=== PATIENT | male | born 1940 | race Caucasian/White ===

== ENCOUNTER 2016-11-01 08:31 | Emergency (ER) | payer OTHER ==
[~2016-11-01] VITALS: Ht 172.7 cm; Wt 99.8 kg
[~2016-11-01 08:31] MED LIST: ASPIR-LOX325 MG PO; ASPIRIN325 MG PO; ATENOLOL25 MG PO; COZAAR25 M1 PO; DAYPRO600 M1 PO; DOK COLACE100 MG PO; FOLIC ACID PO; GLUCOPHAGE1000 MG PO; HYDROCODONE BIT1 T20 PO; LEVAQUIN500 M2 PO; LISINOPRIL/HCTZ1 TA4 PO; LOVENOX30 MG/0.3 SC; MELOXICAM15 MG PO; METFORMIN1000 MG PO; NAPROSYN500 MG PO; NORVASC10 MG PO; OYSTER CALCIUM500 MG PO; PERCOCET 325 MG1 TA2 PO; POTASSIUM20 MEQ PO; PRAVACHOL20 MG PO; PRAVASTATIN SOD40 MG PO; PREDNISONE2.5 MG PO; PRILOSEC20 MG PO; PROZAC20 MG PO; ROBAXIN750 MG PO; SIMVASTATIN40 MG PO; TRAZODONE50 MG PO; VICO75300 PO; VITAMIN D31000 I2 PO; ZOLPIDEM10 M1 PO
[2016-11-01] MEDS ORDERED: Fioricet 325 MG1 TAB PO (12:29)
== END 2016-11-01 12:37 | disposition home or self-care (01) ==
LOC: ED 08:31
DX: M79.604 Pain in right leg (principal); F17.200 Nicotine dependence, unspecified, uncomplicated; Z95.0 Presence of cardiac pacemaker; Z90.49 Acquired absence of other specified parts of digestive tract; E11.9 Type 2 diabetes mellitus without complications; K21.9 Gastro-esophageal reflux disease without esophagitis; E78.5 Hyperlipidemia, unspecified; I10 Essential (primary) hypertension; Z91.013 Allergy to seafood; Z79.899 Other long term (current) drug therapy; Z96.651 Presence of right artificial knee joint

== ENCOUNTER → 2016-11-09 | Outpatient (CLI) | payer OTHER ==
[~2016-11-09] MED LIST changes: +Fioricet 325 MG1 TAB PO
== END | disposition home or self-care (01) ==
LOC: ORTHO 03:24
DX: M51.27 Other intervertebral disc displacement, lumbosacral region (principal); E11.9 Type 2 diabetes mellitus without complications; M85.88 Other specified disorders of bone density and structure, other site; Z96.651 Presence of right artificial knee joint

== ENCOUNTER 2017-04-04 08:21 | Emergency (ER) | payer OTHER ==
[~2017-04-04] VITALS: Ht 172.7 cm; Wt 103.4 kg
[2017-04-04 08:54] LABS: BASO # 0.1 10*3/uL (0.0-0.1); BASO % 0.5 % (0.0-1.0); EOS # 0.1 10*3/uL (0.0-0.4); EOS % 0.9 % (1.0-4.0); HEMATOCRIT 43.9 % (42.0-52.0); HEMOGLOBIN 14.5 g/dl (14.0-18.0); LYMPH # 2.9 10*3/uL (1.3-4.4); LYMPH % 31.6 % (27.0-41.0); MEAN CELL VOLUME 84.9 fl (80.0-94.0); MEAN PLATELET VOLUME 10.7 fl (9.6-12.3); MONO # 0.8 10*3/uL (0.1-1.0); MONO % 8.2 % (3.0-9.0); NEUT # 5.4 10*3/uL (2.3-7.9); NEUT % 58.5 % (47.0-73.0); PLATELET COUNT AUTOMATED 182 10*3/uL (130-400); RED BLOOD COUNT 5.17 10*6/uL (4.50-5.90); WHITE BLOOD COUNT 9.2 10*3/uL (4.8-10.8)
[2017-04-04 09:09] LABS: ALKALINE PHOSPHATASE 91 U/L (45-117); BUN 14 mg/dl (7-24); CHLORIDE 100 mmol/L (98-107); CREATININE 1.29 mg/dL (0.70-1.30); POTASSIUM 4.3 mmol/L (3.5-5.1); SGOT/AST 20 IU/L (3-35); SGPT/ALT 20 U/L (12-78); SODIUM 136 mmol/L (136-145); TOTAL PROTEIN 8.2 gm/dL (6.4-8.2)
[2017-04-04 09:42] LABS: BILIRUBIN 1+ (NEGATIVE); BLOOD NEGATIVE (NEGATIVE); CLARITY SL CLOUDY (CLEAR); COLOR YELLOW (YELLOW); GLUCOSE TRACE (NEGATIVE); KETONE TRACE (NEGATIVE); LEUKO ESTERASE NEGATIVE (NEGATIVE); NITRITE NEGATIVE (NEGATIVE); SPECIFIC GRAVITY >= 1.030 (1.005-1.030); UROBILINOGEN 0.2 E.U./dl (0.2-1.0)
[2017-04-04 09:56] LABS: HYALINE CAST TNTC
[2017-04-04 09:57] LABS: BACTERIA TRACE; MUCOUS 2+
[2017-04-04] MEDS ORDERED: MEDROL DOSEPAK4 MG PO (10:24)
== END 2017-04-04 10:30 | disposition home or self-care (01) ==
LOC: ED 08:21
PROVIDERS: Emergency Medicine
DX: M54.5 Low back pain (principal); M54.32 Sciatica, left side; F32.9 Major depressive disorder, single episode, unspecified; E11.9 Type 2 diabetes mellitus without complications; I10 Essential (primary) hypertension; E78.5 Hyperlipidemia, unspecified; K21.9 Gastro-esophageal reflux disease without esophagitis; Z90.49 Acquired absence of other specified parts of digestive tract; Z95.0 Presence of cardiac pacemaker; Z91.013 Allergy to seafood; Z79.899 Other long term (current) drug therapy; Z79.84 Long term (current) use of oral hypoglycemic drugs

== ENCOUNTER → 2017-04-23 | Outpatient (CLI) | payer OTHER ==
[~2017-04-23] MED LIST changes: +MEDROL DOSEPAK4 MG PO
== END ==
LOC: CT 09:43
DX: M54.5 Low back pain (principal); Z98.890 Other specified postprocedural states

== ENCOUNTER 2017-05-27 20:34 | Inpatient (IN) | payer OTHER ==
[~2017-05-27] VITALS: Ht 172.7 cm; Wt 98.5 kg
--- NOTE | ~2017-05-27 | PR ---
[place], [place] PROGRESS NOTE [id number] UN[facility] #: [id number] ROOM: 412 DOCTOR: MAYANK FULLER MD BIRTHDATE: [birth year] DOS: 05/30/2017 SUBJECTIVE: The patient says that his abdominal pains have improved. OBJECTIVE: VITAL SIGNS: Blood pressure 117/63, heart rate 85 beats per minute, breathing 20 times per minute, temperature 99 degrees Fahrenheit. GENERAL: Obesity. HEENT AND NECK: Exam within normal limits. CARDIOVASCULAR SYSTEM: Heart rate is regular in rate and rhythm. S1 and S2 normally audible. LUNGS: Clear to auscultation. ABDOMEN: Soft, nontender. No obvious organomegaly. Bowel sounds are present. EXTREMITIES: Without significant cyanosis or edema. IMPRESSION: 1. The patient with acute gallstone pancreatitis without necrosis or infection. White cell count still elevated at 23,000. The patient was being followed by Surgery, but her symptoms have improved. 2. The patient with cholelithiasis, requires cholecystectomy at a later time. 3. Type 2 diabetes mellitus. Blood sugars are being monitored and treated. 4. Benign essential hypertension. Blood pressures are staying normal with treatment. MAYANK FULLER MD CM:PNTRANS [phone] MAYANK FULLER MD 05/30/17 215 interface
--- NOTE | ~2017-05-27 | PR ---
[place], [place] PROGRESS NOTE [id number] UN[facility] #: [id number] ROOM: 412 DOCTOR: MAYANK FULLER MD BIRTHDATE: [birth year] DOS: 05/29/2017 SUBJECTIVE: The patient continues to feel better. Abdominal pains are improving. OBJECTIVE: GENERAL APPEARANCE: The patient is alert and oriented x 3, in no visible distress. VITAL SIGNS: Blood pressure 108/56, heart rate of 99 beats per minute, breathing normally, temperature ranging between 98.8 to 101 degrees Fahrenheit. HEENT AND NECK: Exam within normal limits. CARDIOVASCULAR SYSTEM: Heart rate is regular in rate and rhythm. S1 and S2 normally audible. LUNGS: Clear to auscultation. ABDOMEN: Soft, nontender. No obvious organomegaly. Bowel sounds are present. EXTREMITIES: Without significant cyanosis or edema. IMPRESSION: 1. The patient with cholelithiasis without biliary obstruction. 2. Acute gallstone pancreatitis without necrosis or infection. The patient is recovering, abdominal pains are improving. 3. Biliary colic secondary to calculus of the bile duct without cholangitis or cholecystitis without obstruction. 4. Severe leukocytosis. I will follow blood counts. The patient does not appear to be septic at this time. Fevers are resolving with treatment with metronidazole. 5. Benign essential hypertension with controlled blood pressures, which are being monitored. The patient is on labetalol. 6. Diabetes mellitus type 2. Blood sugars are being monitored and treated. MAYANK FULLER MD CM:PNTRANS [phone] MAYANK FULLER MD 05/29/17 2324 interface
--- NOTE | ~2017-05-27 | WRIGHTHP ---
[place], [place] PATIENT HISTORY AND PHYSICAL EXAM NAME: SHENA MENDOZA [facility] #: [id number] UNIT #: [id number] ROOM: 412 DOCTOR: MICHELLE HEAD MD BIRTHDATE: [birth year] DOS: 05/28/2017 A 77-year-old patient who comes in with complaints of acute abdominal pain. HISTORY OF PRESENT ILLNESS: The patient says that he has had this pain for about a week now and he was told to go to the Emergency Room because the pain got worse. He has already been scheduled for some testing as an outpatient. He denies having any fever, chills, any cough, any sputum production, nausea, any emesis. PAST MEDICAL HISTORY: Significant for: 1. History of primary osteoarthritis, right knee replacement. 2. Type 2 diabetes mellitus. 3. Benign hypertension. 4. Gastroesophageal reflux disease. 5. Mixed hyperlipidemia. 6. Chronic kidney disease. MEDICATIONS: He is currently on are amlodipine 10 daily, aspirin 325 daily, atenolol 25 daily, Colace 100 b.i.d., 20 daily, folic acid 1 mg daily, lisinopril/hydrochlorothiazide 1 tablet daily, losartan 25 daily, Meloxicam 15 daily, metformin 500 daily, omeprazole 20 daily, Pravachol 20 daily, prednisone 2.5 daily, trazodone 50 at bedtime. SOCIAL HISTORY: Nonsmoker, does not use any alcohol. Lives at home. PHYSICAL EXAMINATION: GENERAL: The patient is awake and alert and oriented. VITAL SIGNS: Blood pressure is 98/50, pulse of 104, respirations 18, temperature 99.6. LUNGS: Clear. HEART: Regular. ABDOMEN: Obese, soft, nontender this morning. EXTREMITIES: Without any edema. LABORATORY DATA: CT of the abdomen and pelvis shows an enlarged prostate, diverticulosis, cholelithiasis with moderately distended gallbladder. ASSESSMENT AND PLAN: 1. Biliary colic with possibility of mild cholecystitis. The patient is placed on IV fluids, IV antibiotics, n.p.o. 2. Possibility of acute pancreatitis from migration of a biliary stone. We will continue n.p.o. Amylase and lipase will be ordered tomorrow. A surgical consultation obtained. May need an MRCP, but we will check LFTs in the morning. So far, the LFTs are normal. 3. Type 2 diabetes mellitus. Blood sugars not very well controlled. Since he is n.p.o., metformin has been held and the patient will be started on an insulin sliding scale. [place], [place] PATIENT HISTORY AND PHYSICAL EXAM NAME: SHENA MENDOZA UNIT #: [id number] ROOM: [facility] DOCTOR: MICHELLE HEAD MD BIRTHDATE: [birth year] MICHELLE HEAD MD CM:HISPHYS:PATIENT HISTORY AND PHYSICAL EXAMINATION 8 MICHELLE HEAD MD 05/28/17 09 interface
--- NOTE | ~2017-05-27 | PR ---
[place], [place] PROGRESS NOTE [id number] UN[facility] #: [id number] ROOM: 412 DOCTOR: MICHELLE HEAD MD BIRTHDATE: [birth year] DOS: SUBJECTIVE: The patient is doing fine without any complaint. Denies any chest pains, palpitations, abdominal pain. OBJECTIVE: VITAL SIGNS: Blood pressure is 120/50, pulse of 70, respirations 18, temperature 98.7. LUNGS: Diminished breath sounds, clear. HEART: Regular. ABDOMEN: Obese, soft, nontender. EXTREMITIES: Without any edema. ASSESSMENT AND PLAN: 1. Hypokalemia. Supplementation will be ordered. 2. Acute cholecystitis with gallstone pancreatitis. White cell count is still elevated. Lactic acid has normalized. The patient is awaiting a HIDA scan this morning and if it looks good, hope is to discharge him to home. His LFTs are normal. He will need to have gallbladder removed as an outpatient. I will let Dr. Elmore decide on when he would like to have that done. MICHELLE HEAD MD CM:PNTRANS [phone] MICHELLE HEAD MD 05/31/17 0953 interface
--- NOTE | ~2017-05-27 | PR ---
[place], [place] PROGRESS NOTE NAME: SHENA MENDOZA [facility] #: [id number] UNIT #: [id number] ROOM: 412 DOCTOR: JOHAN TERRELL MD BIRTHDATE: [birth year] DOS: 05/31/2017 CARDIOLOGY PROGRESS NOTE SUBJECTIVE: The patient was seen at his bedside today 05/31/2017 for followup of his sick sinus syndrome and newly documented atrial fibrillation. He was admitted to the hospital on this occasion on 05/27/2017 with abdominal pain and was found to have gallstone pancreatitis. During his hospitalization, he was found to be in atrial fibrillation with a rapid ventricular response. Medications were utilized to slow his heart rate. His GI process was stabilized. There is a chance that he may be discharged to home. The patient gives a history of pacemaker placement by Dr. Bill Ying in [place]. He has been followed routinely by Dr. Ying for his pacemaker since then. I do not have detailed records, but as best I can tell he was not in atrial fibrillation, although the pacemaker interrogations that are available to us do indicate that he has had atrial high rates. The patient's CHADS-VASc score is 4 indicating a high risk for stroke without anticoagulation. An echocardiogram is pending as of the time of this dictation. PHYSICAL EXAMINATION: GENERAL: He is an elderly white male who is awake, alert and oriented. VITAL SIGNS: Pulse is 70 and irregularly irregular, blood pressure is 120/50. He is afebrile. NECK: Supple. He has no jugular distention. Carotids are full. I heard no bruits. He had no neck or supraclavicular masses. LUNGS: Respirations are unlabored. His chest is clear to auscultation and percussion. He has no presacral edema or chest wall tenderness. HEART: Has an irregularly irregular rhythm without murmurs or gallops. The PMI is not displaced. He has no precordial heave, lift or thrill. ABDOMEN: Soft and normally active. EXTREMITIES: Showed no edema. IMPRESSION: 1. Gallstone pancreatitis -- improved. 2. History of sick sinus syndrome. 3. 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 4. Newly documented atrial fibrillation, which was seen on the current hospitalization. PLAN: The patient is at high risk for stroke without anticoagulation. I therefore suggested to be placed on a direct oral anticoagulant such as rivaroxaban. If surgery is needed in the near future, it can be stopped transiently to allow surgery to work him safely and then resumed. The patient tells me that he is following up with Dr. Bill Ying. I will review his echocardiogram. Assuming no surprises he could be discharged from our point of view on anticoagulant therapy to follow up with Dr. Ying in the near future. [place], [place] PROGRESS NOTE NAME: SHENA MENDOZA UNIT #: [id number] ROOM: 412 DOCTOR: XANDER ULRICH,JOHAN BIRTHDATE: [address] Walker and Dr. Reilly for asking our advice regarding the patient's care. JOHAN TERRELL MD CM:PNTRANS [phone] JOHAN TERRELL MD 05/31/17 1733 interface
[2017-05-27 20:34] VITALS: BP 137/93
[2017-05-27 21:10] VITALS: BP 100/67
[2017-05-27 21:32] LABS: BASO # 0.1 10*3/uL (0.0-0.1); BASO % 0.4 % (0.0-1.0); EOS # 0.1 10*3/uL (0.0-0.4); EOS % 0.8 % (1.0-4.0); HEMATOCRIT 43.7 % (42.0-52.0); HEMOGLOBIN 14.7 g/dl (14.0-18.0); LYMPH # 2.4 10*3/uL (1.3-4.4); LYMPH % 19.7 % (27.0-41.0); MEAN CELL VOLUME 84.2 fl (80.0-94.0); MEAN CORPUSCULAR HGB 28.3 pg (27.0-31.0); MEAN CORPUSCULAR HGB CONC 33.6 g/dl (33.0-37.0); MEAN PLATELET VOLUME 10.1 fl (9.6-12.3); MONO # 1.2 10*3/uL (0.1-1.0); MONO % 9.4 % (3.0-9.0); NEUT # 8.5 10*3/uL (2.3-7.9); NEUT % 68.8 % (47.0-73.0); PLATELET COUNT AUTOMATED 134 10*3/uL (130-400); RED BLOOD COUNT 5.19 10*6/uL (4.50-5.90); RED CELL DISTRI WIDTH 12.8 % (0-14.5); WHITE BLOOD COUNT 12.3 10*3/uL (4.8-10.8)
[2017-05-27 21:48] LABS: ALBUMIN 3.8 gm/dl (3.1-4.5); ALKALINE PHOSPHATASE 99 U/L (45-117); BUN 19 mg/dl (7-24); CHLORIDE 98 mmol/L (98-107); CREATININE 1.32 mg/dL (0.70-1.30); POTASSIUM 4.3 mmol/L (3.5-5.1); SGOT/AST 22 IU/L (3-35); SGPT/ALT 25 U/L (12-78); SODIUM 135 mmol/L (136-145); TOTAL PROTEIN 7.4 gm/dL (6.4-8.2)
[2017-05-27 21:49] LABS: TROPONIN I < 0.015 ng/ml (<0.045)
[2017-05-27 22:41] VITALS: BP 148/57
[2017-05-27 23:26] VITALS: BP 137/52
[2017-05-28 00:52] VITALS: BP 104/38
[2017-05-28 01:56] VITALS: BP 133/59
[2017-05-28 08:00] VITALS: BP 98/50
[2017-05-28] MEDS ORDERED: ZESTORETIC 20-1 EACH PO (09:54)
[2017-05-28] MEDS ORDERED: PRILOSEC20 M1 PO (09:57)
[2017-05-28 12:00] VITALS: BP 106/51
[2017-05-28 16:00] VITALS: BP 106/52
[2017-05-28 20:00] VITALS: BP 91/55
[2017-05-29] VITALS (10 sets, daily range): BP systolic 100–123; BP diastolic 45–82
[2017-05-29 05:58] LABS: HEMATOCRIT 41.1 % (42.0-52.0); HEMOGLOBIN 13.9 g/dl (14.0-18.0); MEAN CELL VOLUME 85.1 fl (80.0-94.0); MEAN CORPUSCULAR HGB 28.8 pg (27.0-31.0); MEAN CORPUSCULAR HGB CONC 33.8 g/dl (33.0-37.0); MEAN PLATELET VOLUME 11.1 fl (9.6-12.3); PLATELET COUNT AUTOMATED 100 10*3/uL (130-400); RED BLOOD COUNT 4.83 10*6/uL (4.50-5.90); RED CELL DISTRI WIDTH 13.4 % (0-14.5); WHITE BLOOD COUNT 27.3 10*3/uL (4.8-10.8)
[2017-05-29 06:17] LABS: ALBUMIN 2.8 gm/dl (3.1-4.5); CREATININE 1.45 mg/dL (0.70-1.30); POTASSIUM 3.9 mmol/L (3.5-5.1)
[2017-05-29 06:19] LABS: TOTAL PROTEIN 6.3 gm/dL (6.4-8.2)
[2017-05-29 07:00] LABS: PLATELET SUFFICIENCY LOW (NORMAL); TOTAL CELLS COUNTED 100 #CELLS
[2017-05-29 15:30] LABS: ACT PARTIAL THROMBO TIME 31.3 SECONDS (20.8-31.5); INTERNATIONAL NORM RATIO 1.2 (2.0-3.5)
[2017-05-30] VITALS: BP 121/54
[2017-05-30 06:17] LABS: HEMOGLOBIN 12.8 g/dl (14.0-18.0); MEAN CELL VOLUME 85.6 fl (80.0-94.0); MEAN CORPUSCULAR HGB 28.8 pg (27.0-31.0); MEAN CORPUSCULAR HGB CONC 33.7 g/dl (33.0-37.0); MEAN PLATELET VOLUME 11.6 fl (9.6-12.3); PLATELET COUNT AUTOMATED 92 10*3/uL (130-400); RED BLOOD COUNT 4.44 10*6/uL (4.50-5.90); RED CELL DISTRI WIDTH 13.3 % (0-14.5); WHITE BLOOD COUNT 23.2 10*3/uL (4.8-10.8)
[2017-05-30 06:24] LABS: BUN 26 mg/dl (7-24); CHLORIDE 105 mmol/L (98-107); CREATININE 1.11 mg/dL (0.70-1.30); POTASSIUM 3.8 mmol/L (3.5-5.1); SODIUM 138 mmol/L (136-145)
[2017-05-30 07:06] LABS: PLATELET SUFFICIENCY LOW (NORMAL); TOTAL CELLS COUNTED 100 #CELLS
[2017-05-30 08:33] VITALS: BP 117/63
[2017-05-30 12:15] VITALS: BP 92/58
[2017-05-30 16:00] VITALS: BP 116/57
[2017-05-30 20:00] VITALS: BP 116/72
[2017-05-31] VITALS: BP 118/64
[2017-05-31 06:11] LABS: BASO % 0.2 % (0.0-1.0); EOS % 0.1 % (1.0-4.0); HEMATOCRIT 35.1 % (42.0-52.0); HEMOGLOBIN 12.1 g/dl (14.0-18.0); LYMPH # 1.1 10*3/uL (1.3-4.4); LYMPH % 7.4 % (27.0-41.0); MEAN CELL VOLUME 84.6 fl (80.0-94.0); MEAN CORPUSCULAR HGB 29.2 pg (27.0-31.0); MEAN CORPUSCULAR HGB CONC 34.5 g/dl (33.0-37.0); MEAN PLATELET VOLUME 11.1 fl (9.6-12.3); MONO # 0.7 10*3/uL (0.1-1.0); MONO % 4.9 % (3.0-9.0); NEUT # 12.7 10*3/uL (2.3-7.9); NEUT % 86.8 % (47.0-73.0); PLATELET COUNT AUTOMATED 100 10*3/uL (130-400); RED BLOOD COUNT 4.15 10*6/uL (4.50-5.90); RED CELL DISTRI WIDTH 13.3 % (0-14.5); WHITE BLOOD COUNT 14.7 10*3/uL (4.8-10.8)
[2017-05-31 06:28] LABS: ALKALINE PHOSPHATASE 63 U/L (45-117); CHLORIDE 108 mmol/L (98-107); CREATININE 0.88 mg/dL (0.70-1.30); LIPASE 187 U/L (73-393); POTASSIUM 3.4 mmol/L (3.5-5.1); SGOT/AST 17 IU/L (3-35); SGPT/ALT 14 U/L (12-78); SODIUM 140 mmol/L (136-145); TOTAL PROTEIN 5.7 gm/dL (6.4-8.2)
[2017-05-31 06:31] LABS: BUN 16 mg/dl (7-24)
[2017-05-31 08:00] VITALS: BP 120/50
[2017-05-31] MEDS ORDERED: FLAGYL500 MG PO (08:50)
== END 2017-05-31 11:34 | disposition home or self-care (01) | DRG 444 ==
LOC: ED 20:34 → EDHOLD 05-28 00:12 → 4E 05-28 00:22
PROVIDERS: Emergency Medicine Emergency Medical Services; Internal Medicine; Internal Medicine Cardiovascular Disease
DX: K80.62 Calculus of gallbladder and bile duct with acute cholecystitis without obstruction (principal); K85.10 Biliary acute pancreatitis without necrosis or infection; R65.11 Systemic inflammatory response syndrome (SIRS) of non-infectious origin with acute organ dysfunction; E11.22 Type 2 diabetes mellitus with diabetic chronic kidney disease; I48.91 Unspecified atrial fibrillation; E78.00 Pure hypercholesterolemia, unspecified; K21.9 Gastro-esophageal reflux disease without esophagitis; F32.9 Major depressive disorder, single episode, unspecified; E78.5 Hyperlipidemia, unspecified; E66.9 Obesity, unspecified; R07.9 Chest pain, unspecified; Z96.652 Presence of left artificial knee joint; M54.32 Sciatica, left side; E78.2 Mixed hyperlipidemia; E87.6 Hypokalemia; N18.9 Chronic kidney disease, unspecified; I12.9 Hypertensive chronic kidney disease with stage 1 through stage 4 chronic kidney disease, or unspecified chronic kidney disease; Z79.01 Long term (current) use of anticoagulants; Z79.4 Long term (current) use of insulin; Z82.49 Family history of ischemic heart disease and other diseases of the circulatory system; Z83.3 Family history of diabetes mellitus; Z95.0 Presence of cardiac pacemaker; Z79.82 Long term (current) use of aspirin; Z91.013 Allergy to seafood; Z80.9 Family history of malignant neoplasm, unspecified; Z79.899 Other long term (current) drug therapy; Z68.32 Body mass index [BMI] 32.0-32.9, adult; Z86.79 Personal history of other diseases of the circulatory system

== ENCOUNTER 2017-08-23 01:54 | Inpatient (IN) | payer OTHER ==
[2017-08-19 10:00] LABS: BASO # 0.1 10*3/uL (0.0-0.1); BASO % 0.7 % (0.0-1.0); EOS # 0.1 10*3/uL (0.0-0.4); EOS % 0.9 % (1.0-4.0); HEMATOCRIT 43.4 % (42.0-52.0); HEMOGLOBIN 13.9 g/dl (14.0-18.0); LYMPH # 2.4 10*3/uL (1.3-4.4); LYMPH % 30.2 % (27.0-41.0); MEAN CELL VOLUME 87.9 fl (80.0-94.0); MEAN CORPUSCULAR HGB 28.1 pg (27.0-31.0); MEAN PLATELET VOLUME 10.4 fl (9.6-12.3); MONO # 0.7 10*3/uL (0.1-1.0); MONO % 8.8 % (3.0-9.0); NEUT # 4.8 10*3/uL (2.3-7.9); NEUT % 58.9 % (47.0-73.0); PLATELET COUNT AUTOMATED 183 10*3/uL (130-400); RED BLOOD COUNT 4.94 10*6/uL (4.50-5.90); RED CELL DISTRI WIDTH 13.2 % (0-14.5); WHITE BLOOD COUNT 8.1 10*3/uL (4.8-10.8)
[2017-08-19 10:25] LABS: INTERNATIONAL NORM RATIO 0.9 (2.0-3.5)
[2017-08-19 10:33] LABS: ALBUMIN 3.8 gm/dl (3.1-4.5); CREATININE 1.4 mg/dL (0.70-1.30); POTASSIUM 3.9 mmol/L (3.5-5.1); TOTAL PROTEIN 7.8 gm/dL (6.4-8.2)
[2017-08-19 10:37] LABS: BILIRUBIN, DIRECT 0.1 mg/dL (0.0-0.2)
[2017-08-23] VITALS (10 sets, daily range): BP systolic 120–154; BP diastolic 49–86
[~2017-08-23] VITALS: Ht 172.7 cm; Wt 91.9 kg
--- NOTE | ~2017-08-23 | DS ---
[place], [place] DISCHARGE SUMMARY NAME: SHENA MENDOZA UNIT #: [id number] ROOM: 515 DOCTOR: MAYANK FULLER MD BIRTHDATE: [birth year] DOS: 09/01/2017 ADDENDUM. See last discharge summary that I dictated on 08/31/2017 for discharge summary. DISCHARGE DIAGNOSES: 1. The patient with combined systolic, diastolic type congestive heart failure, now on Lasix. 2. Hypokalemia from taking Lasix. 3. Bilateral lower lobe pneumonia, treated with antibiotics. 4. Hypokalemia today, to be treated with extra potassium supplements and normalized before he is discharged to home. The patient's pulse ox will also be repeated today at room air with ambulation. Case was discussed with Dr. Carrasco today. PHYSICAL EXAMINAITON: GENERAL APPEARANCE: The patient is alert and oriented x 3, in no visible distress. Obesity. VITAL SIGNS: Blood pressure 144/91, heart rate of 76 beats per minute, breathing normally, afebrile. HEENT AND NECK: Exam within normal limits. CARDIOVASCULAR SYSTEM: Heart rate is regular in rate and rhythm. S1 and S2 normally audible. LUNGS: Clear to auscultation. ABDOMEN: Soft, nontender. No obvious organomegaly. Bowel sounds are present. EXTREMITIES: Without significant cyanosis or edema. MAYANK FULLER MD CM:DISCHARG [id number] MAYANK FULLER MD 09/01/17 1530 interface
--- NOTE | ~2017-08-23 | PR ---
[place], [place] PROGRESS NOTE [id number] UN[facility] #: [id number] ROOM: 515 DOCTOR: MAYANK FULLER MD BIRTHDATE: [birth year] DOS: 08/30/2017 SUBJECTIVE: The patient continues to feel better. OBJECTIVE: VITAL SIGNS: Blood pressure 100/50, heart rate ranging between 84 to 102 beats per minute, afebrile. GENERAL APPEARANCE: The patient is alert and oriented x 3, in no visible distress, except for obesity and generalized weakness. HEENT AND NECK: Exam within normal limits. CARDIOVASCULAR SYSTEM: Heart rate is regular in rate and rhythm. S1 and S2 normally audible. LUNGS: Clear to auscultation. ABDOMEN: Soft, nontender. No obvious organomegaly. Bowel sounds are present. EXTREMITIES: Without significant cyanosis or edema. IMPRESSION: 1. The patient with atrial fibrillation with rapid ventricular response, improved with Cardizem and beta álvaro. Dr. Rodriguez is following him. 2. Bilateral lower lobe atelectasis versus pneumonia, status post bronchoscopy. The patient has been cleared for discharge to home tomorrow. 3. The patient is status post open cholecystectomy. The situation was discussed with Dr. Elmore, his surgeon, who also has cleared him for discharge tomorrow. 4. Adult failure to thrive and generalized weakness. The patient is working with Physical Therapy and is ambulating better now. 5. Type 2 diabetes mellitus. Blood sugar is being monitored and treated and controlled. 6. Benign essential hypertension, with controlled blood pressures with treatment. 7. Recent nausea and vomiting, which was intractable have resolved. MAYANK FULLER MD CM:PNTRANS [phone] MAYANK FULLER MD 08/30/171947 interface
--- NOTE | ~2017-08-23 | PR ---
[place], [place] PROGRESS NOTE NAME: SHENA MENDOZA UNIT #: [id number] ROOM: 515 DOCTOR: DEBORA PHILLIP MD BIRTHDATE: [birth year] DOS: 08/30/2017 SUBJECTIVE: He has been still noted with significant cough. The patient has not been noted with any symptoms of chest pain or hemoptysis. The coughing has been noted moderate severe, nonproductive. He is scheduled for bronchoscopy to be done today. The abdominal pain of the patient after surgery has been improving progressively. No symptoms of edema or pain of the lower extremities. Denies symptoms of headache or diplopia. Remaining systems were reviewed. They were noted all negative. PHYSICAL EXAMINATION: VITAL SIGNS: NORMAL temperature, respiratory rate 20, heart rate of 106, blood pressure 118/63. The pulse oxygen saturation on 5 liters nasal cannula to 6 liters is 95% saturation. HEENT: Head was atraumatic. Eyes nonicterus. NECK: Supple. CARDIOVASCULAR: S1, S2 audible. LUNGS: The patient noted with moderate decreased breaths in the lungs bilaterally with severe decrease in the right lower lung. There were no crackles heard. ABDOMEN: Soft, status post surgery without any tenderness. CENTRAL NERVOUS SYSTEM: Nonfocal. LABORATORY DATA: BMP today shows glucose of 341, BUN and creatinine was normal, sodium 135. IMPRESSION: 1. The patient who has been currently noted with ongoing acute cough, related to mucus impaction, atelectasis, rule out pneumonia of the right lower lobe. 2. Bilateral pleural fluid, greater on the right than the left side. 3. Moderate obesity. 4. Hyperglycemia for this patient was noted as well. 5. Status post open cholecystectomy. PLAN OF MANAGEMENT: No changes in the plan of therapy at this time. Continue medical management of the pneumonia with current antibiotics. After bronchoscopy, any modification treatment if necessary will be done afterwards. Continue all other supportive therapy, plan of management care plan. Usual treatment. Other medical management changes will be done for the patient based on progression of the illness. [place], [place] PROGRESS NOTE NAME: SHENA MENDOZA UNIT #: [id number] ROOM: 515 DOCTOR: DEBORA PHILLIP MD BIRTHDATE: [birth year] DEBORA SAEZ MD CM:PNTRANS [phone] DEBORA MORGAN MD 08/31/17 0016 interface
--- NOTE | ~2017-08-23 | CON ---
[place], [place] REPORT OF CONSULTATION NAME: SHENA MENDOZA [facility] #: [id number] UNIT #: [id number] ROOM: 515 DOCTOR: MAYANK FULLER MD BIRTHDATE: [birth year] DOS: 08/24/2017 ATTENDING PHYSICIAN: Milton Elmore M.D. HISTORY OF PRESENT ILLNESS: The patient is a 77-year-old gentleman with a past medical history of: 1. Recent open cholecystectomy by Dr. Elmore for gallstone pancreatitis. 2. Obesity. 3. Benign essential hypertension. 4. Type 2 diabetes mellitus. 5. Osteoarthritis involving the right knee, status post replacement. 6. Mixed hyperlipidemia. 7. Gastroesophageal reflux disease and esophagitis. 8. 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 9. Chronic constipation. 10. Stage 3 chronic kidney disease. 11. Sleep apnea. 12. Mixed hyperlipidemia. The patient presented for elective cholecystectomy, but finally he had to be taken for an open cholecystectomy and Dr. Elmore decided to admit him for observing him after surgery. The patient says he is doing well except for pain at the surgical site. No complaints of shortness of breath, no chest pain, no GI or urinary symptoms. The patient just starting to eat. REVIEW OF SYSTEMS: LUNGS: No increasing shortness of breath. GASTROINTESTINAL: No nausea, vomiting, diarrhea or constipation. The patient just had a cholecystectomy. CARDIOVASCULAR: No chest pains or palpitations. FAMILY HISTORY: Noncontributory. MEDICATIONS: The patient takes losartan, atenolol, amlodipine, DuoNeb, trazodone, labetalol and Vicodin. ALLERGIES: No known drug allergies. PHYSICAL EXAMINATION: GENERAL: Alert, oriented x 3, in no visible distress. Obesity and the patient has surgical dressing at the open cholecystectomy site. HEENT AND NECK: Extraocular movements are intact. Sclerae are anicteric. Oral mucosa is moist and clean. No obvious facial weakness. Neck is supple without any lymphadenopathy. No thyromegaly. No JVD. No carotid arterial bruits. LUNGS: Clear to auscultation. No wheezing. No rhonchi. CARDIOVASCULAR SYSTEM: Heart rate is regular in rate and rhythm. S1 and S2 normally audible. No significant murmur or any other abnormal cardiac sounds. ABDOMEN: Soft, nontender. No obvious organomegaly. Bowel sounds are present. No obvious herniation. EXTREMITIES: Without significant cyanosis or edema. Warm to touch. [place], [place] REPORT OF CONSULTATION NAME: SHENA MENDOZA UNIT #: [id number] ROOM: [facility] DOCTOR: MAYANK FULLER MD BIRTHDATE: [birth year] CENTRAL NERVOUS SYSTEM: Alert and oriented x 3. Cranial nerves II-XII are intact. Speech is normal. The patient is able to move all extremities. Normal muscle strength. Deep tendon reflexes are equal on both sides. Plantars were downgoing. LABORATORY DATA: BUN and creatinine 14 and 1.4. Normal serum electrolytes, normal CBC and platelets. IMPRESSION: 1. The patient is status post open cholecystectomy complaining of pain at the surgical site. He is trying liquid diet at this time and not passing gas from below, being observed in the ICU. 2. Type 2 diabetes mellitus with diabetic nephropathy, stage 3, serum electrolytes will be monitored if stable. 3. Benign essential hypertension. Blood pressures are being monitored and treated and staying normal. 4. Chronic back pains and lumbar spondylosis controlled with Vicodin. 5. Centrilobular emphysema treated with bronchodilators. The patient is presently on DuoNeb. 6. Benign essential hypertension, treated and controlled. The patient remains on labetalol. 7. Chronic primary insomnia, treated with trazodone as needed at night. Dr. Elmore, thank you for asking me to see the patient. I will follow along with you. MAYANK FULLER MD CM:CONSTR:REPORT OF CONSULTATION 1248 08/24/172048 interface
--- NOTE | ~2017-08-23 | PR ---
[place], [place] PROGRESS NOTE NAME: SHENA MENDOZA [facility] #: [id number] UNIT #: [id number] ROOM: 515 DOCTOR: JOHAN TERRELL MD BIRTHDATE: [birth year] DOS: 08/28/2017 SUBJECTIVE: The patient was seen at his bedside today, 08/28/2017, for followup of his atrial fibrillation in rapid ventricular response. He is a 77-year-old man who was hospitalized with cholelithiasis and underwent an open cholecystectomy. He has a history of paroxysmal atrial fibrillation and since surgery has been in AFib with a rapid ventricular response. We have been adjusting his beta álvaro and diltiazem therapy and his rates are not yet well controlled. PHYSICAL EXAMINATION: VITAL SIGNS: Today his pulse is between 110 and 150, blood pressure is 129/64. He is afebrile. NECK: Supple. He has no jugular distention. Carotids are full. LUNGS: Respirations are unlabored. Chest is clear to auscultation and percussion. HEART: Has an irregularly irregular rhythm without murmur or gallop. ABDOMEN: Soft and normally active. EXTREMITIES: Showed no edema. LABORATORY DATA: Hemoglobin is 11.5, white count 14,400, platelet count 113,000. Sodium 135, potassium 3.5, BUN 10 and creatinine 0.88. PLAN: We will continue to adjust his beta álvaro and diltiazem to control his rate. It is my understanding that he is scheduled for bronchoscopy. Rivaroxaban can be withheld for 24 hours prior to the procedure in order to allow appropriate hemostasis. I thank the hospitalist physicians for asking our advice regarding his care. JOHAN TERRELL MD CM:PNTRANS [phone] JOHAN TERRELL MD 08/28/17 1557 interface
--- NOTE | ~2017-08-23 | PR ---
[place], [place] PROGRESS NOTE NAME: SHENA MENDOZA [facility] #: [id number] UNIT #: [id number] ROOM: 515 DOCTOR: SE MORGAN MD,DEBORA BIRTHDATE: [birth year] DOS: 08/28/2017 PULMONARY PROGRESS NOTE SUBJECTIVE: He has been still noted excessive chest congestion with coughing that has not been noted with any sputum expectoration with current medical management, use of bronchodilators, oxygen supplementation, Mucinex, incentive spirometry, and other interventions. He denies symptoms of chest pain. Denies symptoms of nausea, vomiting, or any diarrhea. Abdominal pain was noted from the past surgery, noted controlled pain from current abdominal pain. Denies symptoms of dysphagia. Remaining systems were reviewed with the patient and they were noted all negative. PHYSICAL EXAMINATION: VITAL SIGNS: Normal temperature, respiratory rate 18, heart rate of 110-116, blood pressure 129/64-94/61. Pulse oxygen saturation on 8 liters high flow nasal cannula is 96% saturation. HEENT: Examination shows head was atraumatic. Eyes nonicterus. NECK: Supple. CARDIOVASCULAR: S1, S2 audible. LUNGS: Noted decreased breath sounds in lower portion of the lungs. ABDOMEN: Soft, status post surgery. Bowel sounds present. EXTREMITIES: No edema. CENTRAL NERVOUS SYSTEM: Nonfocal. MUSCULOSKELETAL: Without any acute deformities. LABORATORY DATA: CBC today, WBC count 14.8, hemoglobin 12, hematocrit 36.1, and platelet count normal. BMP this morning, glucose 267 and potassium 3.1. Blood culture from 08/26/2017 taken was noted no bacterial growth. CT scan of the chest that was completed yesterday was personally reviewed shows evidence of bilateral pleural fluid, greater on the right than the left side with area of compression atelectasis and acute pneumonia would be considered as well. Mild elevation of the right hemidiaphragm as well. IMPRESSION: 1. The patient who has been currently noted with acute pneumonia with possible fluid overload as well with bilateral pleural fluid, larger on the right than the left side. 2. Chest congestion and coughing, inability to expectorate sputum. 3. Recent open cholecystectomy as well. PLAN OF TREATMENT: Continue with oxygen supplementation for the management of acute respiratory failure. Titrate to maintain pulse ox saturation 90% greater. The patient has been also suggested fibrobronchoscopy that will be done on Val[place] morning. Risks and benefits discussed. Thoracentesis might be necessary if the conservative treatment failed to resolve the current pleural fluids and fluid overload. [place], [place] PROGRESS NOTE NAME: SHENA MENDOZA UNIT #: [id number] ROOM: [facility] DOCTOR: SE MORGAN MD,DEBORA BIRTHDATE: [birth year] DEBORA SAEZ MD CM:PNTRANS [phone] DEBORA MORGAN MD 08/29/17 0259 interface
--- NOTE | ~2017-08-23 | PROC NOTE ---
[place], [place] PROCEDURE NOTE NAME: [id number] UNIT #: [id number] ROOM: [facility] DOCTOR: ES MORGAN MD,DEBORA BIRTHDATE: [birth year] DOS: 08/30/2017 BRONCHOSCOPY PREOPERATIVE DIAGNOSES: The patient with persistent severe cough, pulmonary infiltration, and pneumonia. POSTOPERATIVE DIAGNOSES: The patient with persistent severe cough, pulmonary infiltration, and pneumonia. PROCEDURE DESCRIPTION: Informed consent obtained from the patient. The patient was brought to the OR and placed in supine position. Conscious sedation was administered by the Anesthesia Department. After achieving proper sedation, airway introduced into the mouth. The bronchoscope advanced to the airway into laryngeal area. The epiglottis and vocal cords were seen. The bronchoscope advanced to the vocal cord and tracheal lumen. The tracheal lumen was seen, which was noted with moderate amount of secretion, which appeared to be a combination of mucus and purulent secretions suctioned out at the [place] level. The bronchoscope advanced further in bronchial subsegment sequentially. The patient noted with thick mucus in the superior segment of the right lower lobe endobronchial tree and the left lobe endobronchial tree. All the secretions suctioned out and cleared up with normal saline wash and sent for cultures. Procedure was well tolerated by the patient without any difficulty. Postoperative findings were discussed with the patient's spouse in detail. DEBORA SAEZ MD CM:PROCNOTE:PROCEDURE NOTE [id number] DEBORA MORGAN MD
--- NOTE | ~2017-08-23 | PR ---
[place], [place] PROGRESS NOTE NAME: SHENA MENDOZA [facility] #: [id number] UNIT #: [id number] ROOM: 515 DOCTOR: MAYANK FULLER MD BIRTHDATE: [birth year] DOS: 08/29/2017 SUBJECTIVE: The patient is feeling better. OBJECTIVE: VITAL SIGNS: Blood pressure 109/65, heart rate of 87 beats per minute, breathing 20 times per minute, temperature afebrile, pulse ox is staying 91 to 92%. GENERAL APPEARANCE: The patient is alert and oriented x 3, in no visible distress, except for generalized weakness and obesity. HEENT AND NECK: Exam within normal limits. CARDIOVASCULAR SYSTEM: Heart rate is regular in rate and rhythm. S1 and S2 normally audible. LUNGS: Clear to auscultation. ABDOMEN: Soft, nontender. No obvious organomegaly. Bowel sounds are present. EXTREMITIES: Without significant cyanosis or edema. IMPRESSION: 1. The patient with bilateral lower lobe atelectasis versus pneumonia, is being taken for bronchoscopy by Dr. Carrasco tomorrow. 2. Bilateral pleural effusions. The patient is being followed by Cardiology. 3. Acute episode of atrial fibrillation, followed by Dr. Rodriguez, treated with Cardizem and beta álvaro. The patient's heart rate is well controlled now and he is anticoagulated. 4. Recurrent nausea and vomiting, resolved. 5. The patient's recent open cholecystectomy. 6. Benign essential hypertension, treated and controlled. 7. Type 2 diabetes mellitus, blood sugar is being monitored and treated. MAYANK FULLER MD CM:PNTRANS [phone] MAYANK FULLER MD 08/29/171947 interface
--- NOTE | ~2017-08-23 | DS ---
[place], [place] DISCHARGE SUMMARY NAME: SHENA MENDOZA UNIT #: [id number] ROOM: 515 DOCTOR: JONNY ULRICHMAYANK Aldana BIRTHDATE: [birth year] DOS: 08/31/2017 DISCHARGE DIAGNOSES: 1. The patient with bilateral lower lung pneumonia and atelectasis, treated with antibiotics and the patient underwent bronchoscopy. 2. Chronic atrial fibrillation with rapid ventricular response. 3. Recent open cholecystectomy by Dr. Elomre. 4. Adult failure to thrive and generalized weakness. 5. Type 2 diabetes mellitus. 6. Benign essential hypertension. 7. Osteoarthritis involving the right knee, status post replacement. 8. Mixed hyperlipidemia. 9. Gastroesophageal reflux disease and esophagitis. 10. 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 11. Chronic constipation. 12. History of obesity and sleep apnea. The patient was admitted after elective cholecystectomy, which was converted into an open cholecystectomy by Dr. Elmore. Following this, patient was admitted to [facility]. The patient remained on antibiotics and was evaluated by Dr. Carrasco for acute over chronic respiratory failure and he was found to have bilateral lower lung pneumonia versus atelectasis. Dr. Carrasco took him for bronchoscopy yesterday and the patient has been continuously improving and now started to ambulate and has been cleared by Dr. Elmore for discharge to home. Bilateral pneumonia, followed and treated by forester aide, Dr. Carrasco. The patient also underwent bronchoscopy and he is breathing much better. Adult failure to thrive and generalized weakness and ambulatory dysfunction, improved with physical therapy. Type 2 diabetes mellitus. Blood sugars were monitored and treated and controlled. Chronic primary insomnia, treated with trazodone at night. Acute exacerbation of COPD, treated with bronchodilators, DuoNeb. Chronic atrial fibrillation with rapid ventricular response, which was treated with metoprolol and verapamil and heart rate is better controlled now. His Norvasc was stopped. Benign essential hypertension, with better controlled blood pressures. Obesity. The patient is working on diet. LABORATORY DATA: Sputum cultures grew normal deric. Blood cultures were negative. CT of the chest showed bilateral pleural effusions, moderate opacity in both lower lungs, pneumonia versus atelectasis. [place], [place] DISCHARGE SUMMARY NAME: SHENA MENDOZA UNIT #: [id number] ROOM: 515 DOCTOR: MAYANK FULLER MD BIRTHDATE: [birth year] DISCHARGE MANAGEMENT: Potassium chloride 10 mEq daily, furosemide 40 mg daily, diltiazem CD 360 mg daily, metoprolol 100 mg b.i.d., rivaroxaban 20 mg daily, Tylenol p.r.n., ondansetron 4 mg every 4 hours p.r.n. for nausea, vomiting, losartan 25 mg daily, DuoNeb q.i.d., trazodone 50 mg at bedtime. The patient is being determined for home oxygen requirement and will be discharged to home after clearance from his forester aide, Dr. Carrasco. One hour spent on patient's discharge process, communicating with nursing staff, patient and the consultants. ADDENDUM. See last discharge summary that I dictated on 08/31/2017 for discharge summary. DISCHARGE DIAGNOSES: 1. The patient with combined systolic, diastolic type congestive heart failure, now on Lasix. 2. Hypokalemia from taking Lasix. 3. Bilateral lower lobe pneumonia, treated with antibiotics. 4. Hypokalemia today, to be treated with extra potassium supplements and normalized before he is discharged to home. The patient's pulse ox will also be repeated today at room air with ambulation. Case was discussed with Dr. Carrasco today. PHYSICAL EXAMINAITON: GENERAL APPEARANCE: The patient is alert and oriented x 3, in no visible distress. Obesity. VITAL SIGNS: Blood pressure 144/91, heart rate of 76 beats per minute, breathing normally, afebrile. HEENT AND NECK: Exam within normal limits. CARDIOVASCULAR SYSTEM: Heart rate is regular in rate and rhythm. S1 and S2 normally audible. LUNGS: Clear to auscultation. ABDOMEN: Soft, nontender. No obvious organomegaly. Bowel sounds are present. EXTREMITIES: Without significant cyanosis or edema. [place], [place] DISCHARGE SUMMARY NAME: SHENA MENDOZA UNIT #: [id number] ROOM: 515 DOCTOR: MAYANK FULLER MD BIRTHDATE: [birth year] MAYANK FULLER MD CM:KRISHNA [id number] MAYANK FULLER MD 09/01/17 1530 interface
--- NOTE | ~2017-08-23 | PR ---
[place], [place] PROGRESS NOTE NAME: [id number] UNIT #: [id number] ROOM: 515 DOCTOR: JOHAN TERRELL MD BIRTHDATE: [birth year] DOS: 08/29/2017 CARDIOLOGY PROGRESS NOTE SUBJECTIVE: The patient was seen at his bedside today, 08/29/2017, for followup of his paroxysmal atrial fibrillation with rapid ventricular response. He is a 77-year-old man who was hospitalized with cholelithiasis and underwent an open cholecystectomy. He has been in atrial fibrillation since the surgery and up until yesterday the rate was fairly fast. We adjusted his beta álvaro and diltiazem therapies and his rate is now much better controlled. He states that he is feeling well, breathing easily and denies any chest pain. His appetite is improving. PHYSICAL EXAMINATION: VITAL SIGNS: Today his pulse is 87 and irregularly irregular, blood pressure is 109/65. He is afebrile. NECK: Supple. He has no jugular distention or hepatojugular reflux. Carotids are full. LUNGS: Respirations are unlabored. His chest is clear anteriorly and laterally. HEART: Has an irregularly irregular rhythm without murmurs or gallops. ABDOMEN: Soft. EXTREMITIES: Showed no edema of the ankles. IMPRESSION: 1. Paroxysmal atrial fibrillation. 2. Status post open cholecystectomy. 3. Postoperative atrial fibrillation with rapid ventricular response. PLAN: The patient currently is on metoprolol 100 mg b.i.d. and diltiazem 60 mg q.i.d. to control his heart rate. We will switch the diltiazem for the sustained release form and continue rivaroxaban for his stroke prophylaxis. We will continue to follow him intermittently with his other physicians. I thank the hospitalist physicians for asking our advice regarding his care. [place], [place] PROGRESS NOTE NAME: CULLEN MENDOZAY Tarik [facility] [id number]IT #: [id number] ROOM: [facility] DOCTOR: JOHAN TERRELL MD BIRTHDATE: [birth year] JOHAN TERRELL MD CM:PNTRANS [phone] JOHAN TERRELL MD 08/29/171938 interface
--- NOTE | ~2017-08-23 | PR ---
[place], [place] PROGRESS NOTE [id number] UNIT #: [id number] ROOM: 515 DOCTOR: MAYANK FULLER MD BIRTHDATE: [birth year] DOS: 08/28/2017 SUBJECTIVE: The patient is doing much better. He is able to get up and ambulate. PHYSICAL EXAMINATION: VITAL SIGNS: Afebrile, blood pressure 128/44, heart rate going up to 125 beats per minute. Breathing normally if pulse ox is good. GENERAL APPEARANCE: The patient is alert and oriented x 3, in no visible distress. Obese. HEENT AND NECK: Exam within normal limits. CARDIOVASCULAR SYSTEM: Heart rate is regular in rate and rhythm. S1 and S2 normally audible. LUNGS: Clear to auscultation. ABDOMEN: Soft, nontender. No obvious organomegaly. Bowel sounds are present. EXTREMITIES: Without significant cyanosis or edema. IMPRESSION AND PLAN: 1. The patient with bilateral pleural effusions and bilateral lower lobe infiltrates versus atelectasis, is asymptomatic now. Breathing is improved. He is ambulating normally. 2. Acute atrial fibrillation with rapid ventricular response, being followed by Dr. Rodriguez and being treated with diltiazem and beta álvaro and treated with anticoagulation. 3. Nausea and vomiting is resolved. The patient is tolerating diet better. 4. Benign essential hypertension with controlled blood pressures. 5. Type 2 diabetes mellitus. Blood sugars are being monitored and treated. The patient is status post open cholecystectomy for gallstone. MAYANK FULLER MD CM:PNTRANS [phone] MAYANK FULLER MD 08/28/172205 interface
--- NOTE | ~2017-08-23 | PR ---
[place], [place] PROGRESS NOTE NAME: SHENA MENDOZA [facility] #: [id number] UNIT #: [id number] ROOM: 515 DOCTOR: SE MORGAN MD,DEBORA BIRTHDATE: [birth year] DOS: 08/31/2017 SUBJECTIVE: He has bronchoscopy done just a significant with acute symptoms of cough noted with improved clearance of the respiratory symptom. He has now been noted with symptoms of chest pain, hemoptysis. Denies any edema or pain in the lower extremities. Denies any symptoms of nausea, vomiting, diarrhea or any abdominal pain. The patient has not reported any symptoms of headache or diplopia. General weakness, fatigue, was noted, which is improving. The remaining systems were reviewed. They were noted all negative. PHYSICAL EXAMINATION: VITAL SIGNS: Normal temperature, respiratory rate 18, heart rate 70, blood pressure 130/70. Pulse oxygen saturation on 4 L nasal cannula 93-94% saturation recorded. HEENT: Examination shows head was atraumatic. Eyes nonicterus. NECK: Supple. CARDIOVASCULAR: S1, S2 audible. LUNGS: Absence of any wheezing. Decreased breath sounds in lower portion of the lungs. ABDOMEN: Soft, nontender. Bowel sounds present. Moderate obesity. Status post surgery. EXTREMITIES: The patient with mild edema in lower extremities. There were no clubbing or cyanosis. MUSCULOSKELETAL SYMPTOMS without any acute deformities. The patient mild edema lower extremities. LABORATORY DATA: The Gram stain bronchial washing 85 cells, moderate epithelial cells, rare gram-positive cocci in pairs and clusters. Normal deric. Final culture is pending culture results were pending. Vancomycin trough level 22.5. IMPRESSION: 1. The patient has been noted with fluid overload for patient versus congestive heart failure, bilateral pleural fluid. The pleural fluid has been still noted persistent, but the decrease in the size of the patient has ultrasound, chest was performed at bedside on this patient today. He would not require any thoracentesis. 2. Resolving acute severe hypoxic respiratory failure. 3. Acute pneumonia, suspected possible compression atelectasis. 4. Fluid overload. PLAN OF TREATMENT: De-escalation antibiotic after the culture results tomorrow. In the meantime, continue current antibiotic, gram-positive, gram-negative infections. Bronchodilator to be continued. The patient was started on Lasix 40 mg daily. The patient's potassium supplementation starting today. The further addition of changes in the treatment will be ordered for the patient based on the progression of the symptoms. Close monitoring of the fluid overload and improvement in the edema of the extremities. [place], [place] PROGRESS NOTE NAME: SHENA MENDOZA UNIT #: [id number] ROOM: [facility] DOCTOR: DEBORA PHILLIP MD BIRTHDATE: [birth year] DEBORA SAEZ MD CM:PNTRANS [phone] DEBORA MORGAN MD 08/31/17 1850 interface
--- NOTE | ~2017-08-23 | PR ---
[place], [place] PROGRESS NOTE [id number] UNIT #: [id number] ROOM: 515 DOCTOR: MAYANK FULLER MD BIRTHDATE: [birth year] DOS: 08/27/2017 SUBJECTIVE: The patient is feeling much better and started to walk around. PHYSICAL EXAMINATION: VITAL SIGNS: Blood pressure 110/76, heart rate 86 beats per minute, breathing 18 times per minute, temperature 98 degrees Fahrenheit. GENERAL APPEARANCE: The patient is alert and oriented x 3, in no visible distress. HEENT AND NECK: Exam within normal limits. CARDIOVASCULAR SYSTEM: Heart rate is regular in rate and rhythm. S1 and S2 normally audible. LUNGS: Clear to auscultation. ABDOMEN: Soft, nontender. No obvious organomegaly. Bowel sounds are present. EXTREMITIES: Without significant cyanosis or edema. IMPRESSION: 1. The patient with bilateral pleural effusions and bilateral lower lobe pneumonia versus atelectasis, being followed and treated. The patient remains on vancomycin and meropenem. 2. Acute atrial fibrillation with rapid ventricular response. The patient is back in normal sinus rhythm, started on anticoagulation with Xarelto. The patient is on Toprol now. 3. The patient is status post open cholecystectomy for calculus of the gallbladder. 4. The patient with benign essential hypertension, being followed and treated. 5. Type 2 diabetes mellitus. Blood sugars being monitored and treated and controlled. 6. Chronic primary insomnia, treated with trazodone at night. 7. Centrilobular emphysema being treated with bronchodilators. 8. Nausea and vomiting has resolved. MAYANK FULLER MD CM:PNTRANS [phone] MAYANK FULLER MD 08/27/172145 interface
--- NOTE | ~2017-08-23 | PR ---
[place], [place] PROGRESS NOTE [id number] UNIT #: [id number] ROOM: 515 DOCTOR: SE MORGAN MD,DEBORA BIRTHDATE: [birth year] DOS: 09/01/2017 SUBJECTIVE: The patient has been noted comfortable at this time without acute distress. He has not been noted symptoms of chest pain or any abdominal pain. He was started on oral Lasix yesterday and has been used by the patient. Respiratory brooks, he has been doing very well. OBJECTIVE: VITAL SIGNS: Normal temperature, respiratory rate 18, heart rate 76, blood pressure 140/91 with pulse oxygen saturation on room air 98% saturation at rest was noted. HEENT: Examination shows head was atraumatic. Eye nonicterus. NECK: Supple. CARDIOVASCULAR: S1, S2 audible. LUNGS: The patient was noted without any wheezing or crackles at the present time. ABDOMEN: Soft, nontender. EXTREMITIES: Without any acute edema. IMPRESSION: 1. Bilateral pleural fluid. Positive fluid overload, congestive heart failure combination, improving gradually. 2. Hypokalemia noted for this patient on today's lab, as 2.8. 3. Resolving acute pneumonia. 4. Status post surgery for open cholecystectomy. PLAN OF MANAGEMENT: Supplementation of potassium. Assessment for home oxygen for this patient would be done. Oral Lasix could be given to the patient prior to the discharge. Continued chronic anticoagulation as Xarelto. Other plan of therapy, discharge planning has been discussed with Dr. Reilly. DEBORA SAEZ MD CM:PNTRANS [phone] DEBORA MORGAN MD 09/01/171925 interface
--- NOTE | ~2017-08-23 | CON ---
[place], [place] REPORT OF CONSULTATION NAME: SHENA MENDOZA [facility] #: [id number] UNIT #: [id number] ROOM: 515 DOCTOR: DEBORA PHILLIP MD BIRTHDATE: [birth year] DOS: 08/27/2017 PULMONARY CONSULTATION, EVALUATION, AND MANAGEMENT CONSULTATION REQUESTED BY: Dr. Elmore. REASON FOR CONSULTATION: For assessment of acute progressive respiratory failure during this current hospitalization. HISTORY OF PRESENT ILLNESS: This is a 77-year-old white male who has been admitted to the hospital under the care of Dr. Elmore, the patient noted with gall-induced pancreatitis. The patient underwent open cholecystectomy for the medical management of the current cholelithiasis and gallstone-induced pancreatitis. The surgery was completed by Dr. Elmore for this patient on 08/23/2017. The patient has been treated in the hospital after surgery for further medical management. He has developed increased oxygen requirement from 08/25/2017 with increased oxygen requirement up to 4 and 8 liters nasal cannula. The patient stated he has been noted with symptoms of chest congestion and cough. The cough has been noted moderate without any sputum expectoration. He denies any symptoms of acute chest pain at this time. He does have symptoms of shortness of breath, which are noted at rest. Denies symptoms of hemoptysis. Denies any symptoms of active wheezing. REVIEW OF SYSTEMS: CONSTITUTIONAL: Fatigue and tiredness reported without any symptoms of fever or chills. EYES: Denies any burning, redness, or tenderness. EARS, NOSE, AND THROAT SYMPTOMS. Denies sore throat, hoarseness, otalgia, postnasal drainage or epistaxis. CARDIOVASCULAR: Denies angina pain, edema or pain of the lower extremity. GASTROINTESTINAL: Current surgery, on the patient's abdomen still noted with some pain in the upper portion of the abdomen controlled with medical management, ____ nausea, vomiting, diarrhea, which are noted at this time. There was no hematemesis or melena symptoms. GENITOURINARY SYMPTOMS: No dysuria, suprapubic pain, hematuria. MUSCULOSKELETAL: No acute joint pain, redness, or tenderness. CENTRAL NERVOUS SYSTEM: General weakness was noted. There were no symptoms of fever or chills or any focal deficit. Remaining systems were reviewed and they were noted all negative. PAST MEDICAL HISTORY: 1. Essential hypertension. 2. Type 2 diabetes mellitus. 3. Obstructive sleep apnea disorder. 4. Chronic kidney disease stage 3. 5. Mixed hyperlipidemia. 6. Cholelithiasis. 7. Gall-induced pancreatitis, previously known as well. [place], [place] REPORT OF CONSULTATION NAME: SHENA MENDOZA UNIT #: [id number] ROOM: [facility] DOCTOR: SE MORGAN MD,DEBORA BIRTHDATE: [birth year] PAST SURGICAL HISTORY: Noted as an open cholecystectomy that was done for this patient on 08/25/2017. SOCIAL HISTORY: The patient stated he is and lives at home. Nonsmoker lifetime. He has six children. Denies any tobacco, alcohol or any illicit drug use previously. FAMILY HISTORY: Noted noncontributory. PHYSICAL EXAMINATION: GENERAL: A 77-year-old white male, currently noted comfortable with oxygen supplementation high flow nasal cannula on this morning of assessment, sitting on the bed. Height of 5 feet 8 inches, weight of 202 pounds, BMI 30.7. VITAL SIGNS: Temperature noted at 101.8 degrees Fahrenheit yesterday to 99 degree Fahrenheit temperature yesterday, noted 100.3 earlier. The respiratory rate of the patient recorded this morning as 18-20, heart rate of 106-84, blood pressure 125/75-100/59. Heart rate was noted yesterday at 140 with atrial fibrillation, rapid ventricular response. HEENT: Examination shows head was atraumatic. Eyes nonicterus. NECK: Supple. CARDIOVASCULAR: S1, S2 is audible. LUNGS: The patient is noted with decreased breath sounds noted in the right lower lung. Scattered occasional crackles. No wheezing. ABDOMEN: Soft, nontender. EXTREMITIES: The patient was noted without any acute edema. SKIN: Visible skin, no lesions or rashes. MUSCULOSKELETAL SYMPTOMS: Without any acute deformities. CENTRAL NERVOUS SYSTEM: The patient's cranial nerves 2-12 intact. LABORATORY DATA: The CBC on 08/26/2017 with WBC count 14.4, hemoglobin 11.5, hematocrit 35.4, platelet count at 113,000. CMP of the patient on 08/26/2017, glucose 228, BUN normal, creatinine normal, sodium 135. The arterial blood gas that was done yesterday on the patient, pH of 7.45, pCO2 of 33, pO2 of 56 on 50% Venturi mask yesterday. The echocardiogram that was completed on the patient yesterday as the patient developed atrial fibrillation with rapid ventricular response. The patient was noted with the finding by Dr. March as left ventricle ejection fraction 50% with trace mitral valve regurgitation, otherwise normal study reported. CMP yesterday, glucose 228, BUN normal, creatinine normal, sodium 135, albumin 2.3, total protein 5.8. 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 Otherwise, lungs were noted clear. Chest x-ray of the patient that was done yesterday was noted with evidence of pleural fluid on the left side with area of atelectasis in the right lower lobe, elevation of right hemidiaphragm, with the pleural fluid associated that was considered. IMPRESSION: 1. The patient who has been noted with progressive acute respiratory failure, multifactorial after the current surgery related to the atelectasis of the right lower lobe with possible acute pneumonia because of the temperature elevation would be considered very likely. [place], [place] REPORT OF CONSULTATION NAME: SHENA MENDOZA UNIT #: [id number] ROOM: [facility] DOCTOR: SE MORGAN MD,[facility] BIRTHDATE: [birth year] 2. Bilateral pleural fluid secondary to fluid overload would be considered. The patient was getting the Ringer lactate yesterday that was discontinued. 3. The patient with new onset of atrial fibrillation, currently treated with the medications as well. 4. The patient with status post current open cholecystectomy. 5. Severe debility secondary to acute illness. PLAN OF MANAGEMENT: The patient was pancultured yesterday, the patient started on broad-spectrum intravenous antibiotic by me with vancomycin and meropenem. I will be ordering a CT scan of the chest for this patient to be done for further assessment and clear identification of his abnormal pulmonary process. Titrate oxygen supplementation to maintain pulse oxygen saturation 92% or greater. The BiPAP could be administered to the patient in case of any further hypoxia. Other supportive therapy, plan of management based on the assessment of the CT scan of the chest finding of the patient. Additional recommendation or changes in his medical management will be offered accordingly. In the meantime, bronchodilator will be continued for the patient to fully mobilize the secretions. Sputum for Gram stain and culture will be done if the patient is able to expectorate the sputum as well. The bronchoscopy may be considered if the atelectasis, pneumonia noted to be done hopefully on Wednesday. All other supportive plan of therapy and care plan. Usual medical management. Thanks for allowing me to participate in the care of this patient. DEBORA SAEZ MD CM:CONSTR:REPORT OF CONSULTATION 1715 08/28/17 0701 interface
--- NOTE | ~2017-08-23 | PR ---
[place], [place] PROGRESS NOTE NAME: SHENA MENDOZA [facility] #: [id number] UNIT #: [id number] ROOM: 515 DOCTOR: MAYANK FULLER MD BIRTHDATE: [birth year] DOS: 08/25/2017 SUBJECTIVE: The patient is still complaining of abdominal pain, nausea and vomiting. OBJECTIVE: VITAL SIGNS: Blood pressure 155/65, heart rate of 90 beats per minute, afebrile, breathing 16 times per minute, pulse ox staying between 93 to 95%, going as high as 98%. IMPRESSION: 1. Recurrent nausea, vomiting after cholecystectomy. The patient is being followed by surgeon, Dr. Elmore. 2. Type 2 diabetes mellitus with diabetic nephropathy, chronic kidney disease stage 3. The patient is being hydrated with normal saline and the serum electrolytes are being monitored. 3. Benign essential hypertension, treated and controlled. 4. Chronic back pain and lumbar spondylosis, treated with Vicodin. 5. Central lobular emphysema, with bronchodilators, asymptomatic. No increasing shortness of breath. 6. Benign essential hypertension. Blood pressure is being monitored and treated and staying normal. 7. Chronic primary insomnia, treated with trazodone at night as needed. MAYANK FULLER MD CM:PNTRANS [id number] MAYANK FULLER MD 08/25/172120 interface
[~2017-08-23 01:54] MED LIST changes: +FLAGYL500 MG PO; +GLUCOPHAGE500 M1 PO; -METFORMIN1000 MG PO; +PRILOSEC20 M1 PO; +ZESTORETIC 20-1 EACH PO
[2017-08-23] MEDS ORDERED: LIPITOR80 MG PO (15:59)
[2017-08-24] VITALS: BP 120/72
[2017-08-24 04:00] VITALS: BP 112/58; BP 116/80
[2017-08-24 08:00] VITALS: BP 130/66
[2017-08-24 12:00] VITALS: BP 126/52
[2017-08-24 16:00] VITALS: BP 126/57
[2017-08-24 20:00] VITALS: BP 121/84
[2017-08-25] VITALS: BP 138/54
[2017-08-25] MEDS ORDERED: NATURE'S BLEND F1 MG PO (03:09)
[2017-08-25] MEDS ORDERED: HYDROCODONE-AC1 EAC2 PO (03:10)
[2017-08-25 08:00] VITALS: BP 165/84
[2017-08-25 12:00] VITALS: BP 155/65
[2017-08-25 16:00] VITALS: BP 130/46; BP 149/78
[2017-08-25 20:00] VITALS: BP 148/67
[2017-08-26] VITALS (10 sets, daily range): BP systolic 113–147; BP diastolic 50–78
[2017-08-26 07:03] LABS: BASO % 0.1 % (0.0-1.0); HEMATOCRIT 35.4 % (42.0-52.0); HEMOGLOBIN 11.5 g/dl (14.0-18.0); LYMPH # 0.9 10*3/uL (1.3-4.4); MEAN CELL VOLUME 87.4 fl (80.0-94.0); MEAN CORPUSCULAR HGB 28.4 pg (27.0-31.0); MEAN CORPUSCULAR HGB CONC 32.5 g/dl (33.0-37.0); MONO # 0.9 10*3/uL (0.1-1.0); MONO % 6.1 % (3.0-9.0); NEUT # 12.4 10*3/uL (2.3-7.9); NEUT % 86.1 % (47.0-73.0); PLATELET COUNT AUTOMATED 113 10*3/uL (130-400); RED BLOOD COUNT 4.05 10*6/uL (4.50-5.90); RED CELL DISTRI WIDTH 13.1 % (0-14.5); WHITE BLOOD COUNT 14.4 10*3/uL (4.8-10.8)
[2017-08-26 07:25] LABS: ALBUMIN 2.3 gm/dl (3.1-4.5); ALKALINE PHOSPHATASE 58 U/L (45-117); BUN 10 mg/dl (7-24); CHLORIDE 99 mmol/L (98-107); CREATININE 0.88 mg/dL (0.70-1.30); POTASSIUM 3.5 mmol/L (3.5-5.1); SGOT/AST 21 IU/L (3-35); SGPT/ALT 23 U/L (12-78); SODIUM 135 mmol/L (136-145); TOTAL PROTEIN 5.8 gm/dL (6.4-8.2)
[2017-08-26 13:22] LABS: ABG BASE EXCESS 0.5 mmol/L (-2.0-2.0); ABG HCO3 22.9 mmol/l (22-26); ABG O2 SATURATION 89.5 % (95-97); ARTERIAL BLOOD GAS PCO2 33.5 mmHg (35-45); ARTERIAL BLOOD GAS PH 7.456 (7.35-7.45); ARTERIAL BLOOD GAS PO2 56.9 mmHg (80-90)
[2017-08-27] VITALS: BP 127/59
[2017-08-27 08:00] VITALS: BP 100/59
[2017-08-27 12:00] VITALS: BP 125/75
[2017-08-27 16:00] VITALS: BP 110/58
[2017-08-27 20:00] VITALS: BP 110/76
[2017-08-28 00:49] VITALS: BP 94/61
[2017-08-28 08:00] VITALS: BP 121/76
[2017-08-28 12:00] VITALS: BP 129/64
[2017-08-28 16:00] VITALS: BP 128/44
[2017-08-28 17:40] LABS: BASO % 0.3 % (0.0-1.0); EOS % 0.1 % (1.0-4.0); HEMATOCRIT 36.1 % (42.0-52.0); LYMPH # 1.2 10*3/uL (1.3-4.4); LYMPH % 7.8 % (27.0-41.0); MEAN CELL VOLUME 86.2 fl (80.0-94.0); MEAN CORPUSCULAR HGB 28.6 pg (27.0-31.0); MEAN CORPUSCULAR HGB CONC 33.2 g/dl (33.0-37.0); MONO # 0.8 10*3/uL (0.1-1.0); MONO % 5.3 % (3.0-9.0); NEUT # 12.6 10*3/uL (2.3-7.9); NEUT % 84.8 % (47.0-73.0); PLATELET COUNT AUTOMATED 185 10*3/uL (130-400); RED BLOOD COUNT 4.19 10*6/uL (4.50-5.90); RED CELL DISTRI WIDTH 13.2 % (0-14.5); WHITE BLOOD COUNT 14.8 10*3/uL (4.8-10.8)
[2017-08-28 17:52] LABS: BUN 18 mg/dl (7-24); CHLORIDE 102 mmol/L (98-107); CREATININE 0.97 mg/dL (0.70-1.30); POTASSIUM 3.1 mmol/L (3.5-5.1); SODIUM 137 mmol/L (136-145)
[2017-08-28 20:00] VITALS: BP 100/77
[2017-08-29] VITALS: BP 101/75
[2017-08-29 08:00] VITALS: BP 113/77
[2017-08-29 10:26] VITALS: BP 122/66
[2017-08-29 12:00] VITALS: BP 109/65
[2017-08-29 16:00] VITALS: BP 108/62
[2017-08-29 20:00] VITALS: BP 107/63
[2017-08-30] VITALS (9 sets, daily range): BP systolic 100–125; BP diastolic 50–74
[2017-08-30 06:09] LABS: BUN 24 mg/dl (7-24); CHLORIDE 102 mmol/L (98-107); CREATININE 1.16 mg/dL (0.70-1.30); POTASSIUM 3.8 mmol/L (3.5-5.1); SODIUM 135 mmol/L (136-145)
[2017-08-31] VITALS: BP 108/70
[2017-08-31 08:00] VITALS: BP 138/70
[2017-08-31 12:00] VITALS: BP 112/76
[2017-08-31 15:07] LABS: ACID FAST SPEC PROCESSING Concentration (.)
[2017-08-31 16:00] VITALS: BP 126/72
[2017-08-31] MEDS ORDERED: METOPROLOL SUC100 M1 PO (16:53)
[2017-08-31] MEDS ORDERED: DILTIAZEM HYDR180 M2 PO (16:53)
[2017-08-31 20:00] VITALS: BP 137/86
[2017-09-01 00:30] VITALS: BP 132/70
[2017-09-01 07:48] LABS: ALKALINE PHOSPHATASE 107 U/L (45-117); BUN 11 mg/dl (7-24); CHLORIDE 99 mmol/L (98-107); CREATININE 0.75 mg/dL (0.70-1.30); POTASSIUM 2.8 mmol/L (3.5-5.1); SGOT/AST 21 IU/L (3-35); SGPT/ALT 23 U/L (12-78); SODIUM 138 mmol/L (136-145)
[2017-09-01 08:00] VITALS: BP 144/91
[2017-09-01] MEDS ORDERED: LASIX20 MG PO (10:32)
[2017-09-01] MEDS ORDERED: POTASSIUM CHLO20 ME3 PO (10:32)
[2017-09-01] MEDS ORDERED: DOXYCYCLINE100 M3 PO (10:32)
[2017-09-01 12:00] VITALS: BP 119/54
== END 2017-09-01 16:51 | disposition home or self-care (01) | DRG 414 ==
LOC: SDC 01:54 → 4E 12:28 → 5E 12:28 → ICCU 12:28 → 5E 08-24 14:21
PROVIDERS: Internal Medicine; Internal Medicine Critical Care Medicine
PROC: 0FT40ZZ Resection of Gallbladder, Open Approach (ICD-10-PCS; principal; 2017-08-23)
PROC: 0FJ44ZZ Inspection of Gallbladder, Percutaneous Endoscopic Approach (ICD-10-PCS; principal; 2017-08-23)
PROC: 0BC78ZZ Extirpation of Matter from Left Main Bronchus, Via Natural or Artificial Opening Endoscopic (ICD-10-PCS; 2017-08-30)
PROC: 0BCB8ZZ Extirpation of Matter from Left Lower Lobe Bronchus, Via Natural or Artificial Opening Endoscopic (ICD-10-PCS; 2017-08-30)
PROC: 0BC58ZZ Extirpation of Matter from Right Middle Lobe Bronchus, Via Natural or Artificial Opening Endoscopic (ICD-10-PCS; 2017-08-30)
PROC: 0BC18ZZ Extirpation of Matter from Trachea, Via Natural or Artificial Opening Endoscopic (ICD-10-PCS; 2017-08-30)
PROC: 0BC88ZZ Extirpation of Matter from Left Upper Lobe Bronchus, Via Natural or Artificial Opening Endoscopic (ICD-10-PCS; 2017-08-30)
PROC: 0BC48ZZ Extirpation of Matter from Right Upper Lobe Bronchus, Via Natural or Artificial Opening Endoscopic (ICD-10-PCS; 2017-08-30)
PROC: 0BC68ZZ Extirpation of Matter from Right Lower Lobe Bronchus, Via Natural or Artificial Opening Endoscopic (ICD-10-PCS; 2017-08-30)
PROC: 0BC98ZZ Extirpation of Matter from Lingula Bronchus, Via Natural or Artificial Opening Endoscopic (ICD-10-PCS; 2017-08-30)
PROC: 0BC38ZZ Extirpation of Matter from Right Main Bronchus, Via Natural or Artificial Opening Endoscopic (ICD-10-PCS; 2017-08-30)
DX: K80.66 Calculus of gallbladder and bile duct with acute and chronic cholecystitis without obstruction (principal); K85.10 Biliary acute pancreatitis without necrosis or infection; J96.21 Acute and chronic respiratory failure with hypoxia; J18.1 Lobar pneumonia, unspecified organism; E11.22 Type 2 diabetes mellitus with diabetic chronic kidney disease; E11.65 Type 2 diabetes mellitus with hyperglycemia; I13.0 Hypertensive heart and chronic kidney disease with heart failure and stage 1 through stage 4 chronic kidney disease, or unspecified chronic kidney disease; I50.40 Unspecified combined systolic (congestive) and diastolic (congestive) heart failure; N18.3 Chronic kidney disease, stage 3 (moderate); I48.0 Paroxysmal atrial fibrillation; J43.2 Centrilobular emphysema; E66.9 Obesity, unspecified; M17.11 Unilateral primary osteoarthritis, right knee; Z96.651 Presence of right artificial knee joint; E78.2 Mixed hyperlipidemia; K21.0 Gastro-esophageal reflux disease with esophagitis; R62.7 Adult failure to thrive; E66.09 Other obesity due to excess calories; I48.2 Chronic atrial fibrillation; K59.09 Other constipation; G47.33 Obstructive sleep apnea (adult) (pediatric); E87.6 Hypokalemia; I12.9 Hypertensive chronic kidney disease with stage 1 through stage 4 chronic kidney disease, or unspecified chronic kidney disease; M47.816 Spondylosis without myelopathy or radiculopathy, lumbar region; F51.01 Primary insomnia; Z79.01 Long term (current) use of anticoagulants; Z79.899 Other long term (current) drug therapy; Z95.0 Presence of cardiac pacemaker; Z90.49 Acquired absence of other specified parts of digestive tract; Z87.891 Personal history of nicotine dependence; Z91.013 Allergy to seafood; Z68.30 Body mass index [BMI] 30.0-30.9, adult